=== PATIENT | female | born 1990 | race Caucasian/White ===

== ENCOUNTER 2020-06-23 11:36 | Emergency (ER) | payer SELFPAY ==
[~2020-06-23] VITALS: Ht 165 cm; Wt 61.0 kg
[~2020-06-23 11:36] MED LIST: CLC500CT PO; IBP600T1 PO; NIFE10CA2 PO; PREN1TAB14 PO
--- NOTE | 2020-06-23 11:57 | ED Lower Extremity ---
General Chief Complaint: Lower Extremity Stated Complaint: R FOOT/HEEL PAIN Source: patient Exam Limitations: no limitations History of Present Illness Date Seen by Provider: Jun 23, 2020 Time Seen by Provider: 11:50 Initial Comments 30-year-old female presents to the emergency department today with a chief complaint of right foot pain. Patient works as a "toddler caregiver" and states she thinks she may have stepped off a curb wrong and twisted her ankle. Patient co mplains of pain to the lateral aspect of her right foot and to her heel. She also has some pain at the plantar surface in the midfoot area. She states that she has been walking on her toes on that foot to try and alleviate the discomfort in the heel. Patient's been using ibuprofen and icing the area without much relief of symptoms. No other recent complaints of illness or injury. All other review of systems reviewed and negative except as stated. Onset: last week Severity: moderate Pain/Injury Location: right foot (pain over the base of the 5th MT and heel with compression and palpation) Method of Injury: twisted Allergies and Home Medications Allergies Coded Allergies: No Known Drug Allergies (Verified , 04/21/07) Home Medications Ibuprofen 600 Mg Tab, 600 MG PO Q6H Prescribed by: CHAD GERBER on 12/23/12 1059 Vits W-Ca,Fe,Fa(<1MG) 1 Each Tablet, 1 EACH PO DAILY, (Reported) Patient Home Medication List Home Medication List Reviewed: Yes Review of Systems Constitutional: see HPI EENTM: no symptoms reported Respiratory: no symptoms reported Cardiovascular: no symptoms reported Gastrointestinal: no symptoms reported Genitourinary: no symptoms reported Musculoskeletal: joint pain (heel and base of 5th MT) Skin: no symptoms reported All Other Systems Reviewed Negative Unless Noted: Yes Past Gggjvmf-Ncuack-Tidjcv Hx Immunizations Up To Date Tetanus Booster (TDap): Less than 5yrs PED Vaccines UTD: Yes Date of Influenza Vaccine: October 17, 2012 Past Medical History Reproductive Disorders: No Female Reproductive Disorders: Denies Adverse Reaction/Blood Tranf: No Physical Exam Vital Signs Vital Signs - First Documented Capillary Refill : Height, Weight, BMI Height: '" Weight: 171lbs. oz. 77.895368hv; BMI Method: General Appearance: WD/WN, no apparent distress Hips: bilateral hip non-tender, bilateral hip normal inspection, bilateral hip normal range of motion, bilateral hip no evidence of injury Legs: bilateral leg non-tender, bilateral leg normal inspection, bilateral leg normal range of motion, bilateral leg no evidence of injury Knees: bilateral knee non-tender, bilateral knee normal inspection, bilateral knee normal range of motion, bilateral knee no evidence of injury Ankles: right ankle non-tender, right ankle normal inspection, right ankle normal range of motion, right ankle no evidence of injury Feet: right foot ecchymosis, right foot limited range of motion, right foot pain, right foot soft tissue tenderness Neurologic/Tendon: normal sensation, normal motor functions, normal tendon functions, responds to pain Neurologic/Psychiatric: alert, normal mood/affect, oriented x 3 Skin: normal color, warm/dry Progress/Results/Core Measures Results/Orders My Orders Orders - ROBE GARRETT MD Foot, Right, 3 View (06/23/20 11:59) Vital Signs/I&O 06/23/20 11:42 B/P (MAP) Progress Progress Note : Time: 12:07 Progress Note 30-year-old female complains of right foot pain after a twisting injury. Evaluation today includes a physical exam. Patient has tenderness to the plantar surface of the midfoot and heel. Distal pulses are intact. Sensation is intact. X-rays are pending. 1231 X-ray is unremarkable, no evidence for fracture or dislocation. Patient will be discharged home with continued conservative management. Departure Impression Primary Impression: Sprain or strain of foot Disposition: 01 HOME, SELF-CARE Condition: Stable Departure-Patient Inst. Decision time for Depature: 12:31 Referrals: [facility]/A[facility] MARTINES,LOCAL PHYSICIAN (PCP) Primary Care Physician Patient Instructions: Foot Sprain ED Add. Discharge Instructions: Continue to use [id number]-[id number] ibuprofen as needed. You can take 4 pills with food which is 800 mg every 8 hours. Do not do this for more than 3 to 5 days. You can Rocky wrap the foot as needed for comfort. Wear a good supportive shoe. Follow-up as [facility] with [facility]. Work/School Note: Work Release Form Date Seen in the Emergency Department: Jun 23, 2020 Return to Work: Jun 25, 2020 ROBE GARRETT MD Jun 23, 2020 11:57
--- NOTE | 2020-06-23 12:30 | Diagnostic Imaging Report ---
INDICATION: Right foot pain. COMPARISON: None available. TECHNIQUE: 3 nonweightbearing views of the right foot. FINDINGS: No fracture or traumatic malalignment based on nonweightbearing imaging. There is a normal variant type I os navicularis present. No radiopaque foreign body or soft tissue gas. IMPRESSION: 1. No acute fracture. 2. Normal variant type I os navicularis.. Dictated by: Dictated on workstation # [id number]
== END 2020-06-23 12:42 | disposition home or self-care (01) ==
LOC: EDUNIT# 11:36 → ER 11:39
DX: S93.601A Unspecified sprain of right foot, initial encounter (principal); X50.1XXA Overexertion from prolonged static or awkward postures, initial encounter
CPT/HCPCS: 73630

== ENCOUNTER 2022-02-24 10:10 | Emergency (ER) | payer SELFPAY ==
[~2022-02-24] VITALS: Ht 165 cm; Wt 64.0 kg
[2022-02-24] MEDS ORDERED: NS 100 ML (IVPB) BAG IV ONE (11:15)
[2022-02-24] MEDS ORDERED: HOLD METFORMIN - RECEIVED CONTRAST 20 ML VIAL IV SCH (11:15)
[2022-02-24] MEDS ORDERED: CATHETER FLUSH 10 ML SYR IV PRN (11:15)
[2022-02-24] MEDS ORDERED: IOHEXOL 350 MG/ML 100 ML (OMNIPAQUE 350) VIAL IV ONE (11:15)
--- NOTE | 2022-02-24 11:15 | ED EENT ---
History of Present Illness General Chief Complaint: Dental Problems/Pain Stated Complaint: DENTAL PAIN Nursing Triage Note: PT CO OF L SIDED DENTAL PAIN BOTTOM L JAW. PT WAS SENT TO ED FROM [facility]. PT HAS BEEN ON ANTIBIOTIC SINCE WEDNESDAY. L LOWER JAW SWOLLEN AT THIS X. RATES PAIN12/07 Source: patient Exam Limitations: no limitations History of Present Illness Date Seen by Provider: Feb 24, 2022 Time Seen by Provider: 10:57 Initial Comments This is a 32 yo female Allergies and Home Medications Allergies Coded Allergies: No Known Drug Allergies (Verified , 04/21/07) Patient Home Medication List Calcium Carbonate (Tums) 500 Mg Tab.chew, 500 MG PO, (Reported) Entered as Reported by: ERNESTO WELLER on 12/02/12 1814 Clindamycin HCl (Clindamycin HCl) 150 Mg Capsule, 150 MG PO TID Prescribed by: NELY COOMBS on 02/24/22 1345 Clindamycin HCl (Clindamycin HCl) 300 Mg Capsule, 300 MG PO TID Prescribed by: NELY COOMBS on 02/24/22 1345 Ibuprofen (Motrin) 600 Mg Tab, 600 MG PO Q6H Prescribed by: CHAD GERBER on 12/23/12 1059 Vits W-Ca,Fe,Fa(<1MG) ( Vitamins) 1 Each Tablet, 1 EACH PO DAILY, (Reported) Entered as Reported by: LOCO CHRIS on 08/15/12 1729 Tramadol HCl (Tramadol HCl) 50 Mg Tablet, 50 MG PO Q6H PRN for PAIN Prescribed by: NELY COOMBS on 02/24/22 1345 Past Bkvhcfx-Drzeuf-Jcslpn Hx Patient Social History Tobacco Use?: Yes Tobacco type used: Cigarettes Substance use?: No Alcohol Use?: No Pt feels they are or have been: No Immunizations Up To Date Tetanus Booster (TDap): Less than 5yrs PED Vaccines UTD: Yes Seasonal Allergies Seasonal Allergies: No Past Medical History Tonsillectomy, Tubal Ligation Respiratory: No Cardiac: No Neurological: No Reproductive Disorders: No Female Reproductive Disorders: Denies Genitourinary: No Gastrointestinal: No Musculoskeletal: Yes (CARPAL TUNNEL SURGERY) Endocrine: No HEENT: No Cancer: No Psychosocial: No Integumentary: No Blood Disorders: No Adverse Reaction/Blood Tranf: No Physical Exam Vital Signs Vital Signs - First Documented 02/24/22 10:25 Temp 36.8 Pulse 88 Resp 18 B/P (MAP) 108/75 (86) Pulse Ox 100 Height, Weight, BMI Height: '" Weight: 171lbs. oz. 77.217618hs; 23.00 BMI Method: Progress/Results/Core Measures Results/Orders Lab Results Laboratory Tests Test 02/24/22 12:00 Range/Units White Blood Count 6.2 4.3-11.0 10^3/uL Red Blood Count 4.19 3.80-5.11 10^6/uL Hemoglobin 13.2 11.5-16.0 g/dL Hematocrit 39 35-52 % Mean Corpuscular Volume 92 80-99 fL Mean Corpuscular Hemoglobin 32 25-34 pg Mean Corpuscular Hemoglobin Concent 34 32-36 g/dL Red Cell Distribution Width 13.4 10.0-14.5 % Platelet Count 256 130-400 10^3/uL Mean Platelet Volume 9.4 9.0-12.2 fL Immature Granulocyte % (Auto) 0 % Neutrophils (%) (Auto) 62 42-75 % Lymphocytes (%) (Auto) 24 12-44 % Monocytes (%) (Auto) 12 0-12 % Eosinophils (%) (Auto) 1 0-10 % Basophils (%) (Auto) 1 0-10 % Neutrophils # (Auto) 3.8 1.8-7.8 10^3/uL Lymphocytes # (Auto) 1.5 1.0-4.0 10^3/uL Monocytes # (Auto) 0.8 0.0-1.0 10^3/uL Eosinophils # (Auto) 0.1 0.0-0.3 10^3/uL Basophils # (Auto) 0.0 0.0-0.1 10^3/uL Immature Granulocyte # (Auto) 0.0 0.0-0.1 10^3/uL Percent Immature Platelet Fraction 2.8 0.0-7.6 % Sodium Level 138 135-145 MMOL/L Potassium Level 5.3 H 3.6-5.0 MMOL/L Chloride Level 104 98-107 MMOL/L Carbon Dioxide Level 24 21-32 MMOL/L Anion Gap 10 5-14 MMOL/L Blood Urea Nitrogen 4 L 7-18 MG/DL Creatinine 0.70 0.60-1.30 MG/DL Estimat Glomerular Filtration Rate 117 BUN/Creatinine Ratio 6 Glucose Level 94 70-105 MG/DL Calcium Level 9.4 8.5-10.1 MG/DL Corrected Calcium 9.2 8.5-10.1 MG/DL Total Bilirubin 0.2 0.1-1.0 MG/DL Aspartate Amino Transf (AST/SGOT) 27 5-34 U/L Alanine Aminotransferase (ALT/SGPT) 23 0-55 U/L Alkaline Phosphatase 56 40-136 U/L Total Creatine Kinase 55 29-168 U/L Total Protein 8.0 6.4-8.2 GM/DL Albumin 4.2 3.2-4.5 GM/DL My Orders Orders - NELY COOMBS SENIOR STORAGE ADMINISTRATOR Urine Bedside (02/24/22 11:11) Ed Iv/Invasive Line Start (02/24/22 11:11) Ct Maxillofacial W (02/24/22 11:11) Cbc With Automated Diff (02/24/22 11:11) Comprehensive Metabolic Panel (02/24/22 11:11) Iohexol Injection (Omnipaque 350 Mg/Ml 1 (02/24/22 11:15) Received Contrast (Hold Metformin- Contr (02/24/22 11:15) Ns (Ivpb) (Sodium Chloride 0.9% Ivpb Bag (02/24/22 11:15) Sodium Chloride Flush (Catheter Flush Sy (02/24/22 11:15) Ketorolac Injection (Toradol Injection) (02/24/22 12:15) Creatine Kinase (02/24/22 13:04) Amoxicillin/Clavulanate Tablet (Augmenti (02/24/22 13:45) Medications Given in ED Current Medications Medications Dose Ordered Sig/Ana Route Start Time Stop Time Status Last Admin Dose Admin Iohexol 75 ml ONCE ONCE IV 02/24/22 11:15 02/24/22 11:34 DC 02/24/22 12:13 75 ML Ketorolac Tromethamine 30 mg ONCE ONCE IVP 02/24/22 12:15 02/24/22 12:16 DC 02/24/22 12:44 30 MG Sodium Chloride 10 ml NEEDED PRN IV 02/24/22 11:15 02/24/22 12:13 10 ML Sodium Chloride 100 ml ONCE ONCE IV 02/24/22 11:15 9/27/22 11:34 DC 02/24/22 12:13 80 ML Vital Signs/I&O 02/24/22 10:25 Temp 36.8 Pulse 88 Resp 18 B/P (MAP) 108/75 (86) Pulse Ox 100 Blood Pressure Mean: 86 Departure Impression Primary Impression: Dental caries Additional Impression: Cellulitis of jaw, left Disposition: 01 HOME, SELF-CARE Condition: Improved Departure-Patient Inst. Decision time for Depature: 13:37 Referrals: NO,LOCAL PHYSICIAN (PCP/Family) Primary Care Physician Patient Instructions: Tooth Abscess ED, Dental Pain ED Add. Discharge Instructions: Plan: 1. Follow up with your dentist for likely tooth extraction. 2. Stop taking your Amoxicillin and start Clindamycin three times a day for next 7 days. 3. May take Ibuprofen as needed for pain per package. 4. Take Tramadol 50mg by mouth every 6 hours as needed for severe pain. All discharge instructions reviewed with patient and/or family. Voiced understanding. Scripts Tramadol HCl (Tramadol HCl) 50 Mg Tablet 50 MG PO Q6H PRN for PAIN for 3 Days, #10 TAB 0 Refills Prov: NELY COOMBS SENIOR STORAGE ADMINISTRATOR 02/24/22 Clindamycin HCl (Clindamycin HCl) 300 Mg Capsule 300 MG PO TID for 7 Days, #21 CAP 0 Refills Prov: NELY COOMBS SENIOR STORAGE ADMINISTRATOR 02/24/22 Clindamycin HCl (Clindamycin HCl) 150 Mg Capsule 150 MG PO TID for 7 Days, #21 CAP 0 Refills Prov: NELY COOMBS SENIOR STORAGE ADMINISTRATOR 02/24/22 NELY COOMBS SENIOR STORAGE ADMINISTRATOR Feb 24, 2022 11:15
[2022-02-24 12:07] LABS: BASOPHILS % (AUTO) 1 % (0-10); EOSINOPHILS # (AUTO) 0.1 10^3/uL (0.0-0.3); EOSINOPHILS % (AUTO) 1 % (0-10); HEMATOCRIT 39 % (35-52); HEMOGLOBIN 13.2 g/dL (11.5-16.0); LYMPHOCYTES # (AUTO) 1.5 10^3/uL (1.0-4.0); LYMPHOCYTES % (AUTO) 24 % (12-44); MEAN CORPUSCULAR HEMOGLOBIN 32 pg (25-34); MEAN CORPUSCULAR HGB CONC 34 g/dL (32-36); MEAN CORPUSCULAR VOLUME 92 fL (80-99); MEAN PLATELET VOLUME 9.4 fL (9.0-12.2); MONOCYTES # (AUTO) 0.8 10^3/uL (0.0-1.0); MONOCYTES % (AUTO) 12 % (0-12); NEUTROPHILS # (AUTO) 3.8 10^3/uL (1.8-7.8); NEUTROPHILS % (AUTO) 62 % (42-75); PLATELET COUNT 256 10^3/uL (130-400); WHITE BLOOD COUNT 6.2 10^3/uL (4.3-11.0)
[2022-02-24] MEDS ORDERED: KETOROLAC 30 MG/ML VIAL IVP ONE (12:15)
[2022-02-24 12:26] LABS: ALBUMIN 4.2 GM/DL (3.2-4.5); BILIRUBIN,TOTAL 0.2 MG/DL (0.1-1.0); CALCIUM 9.4 MG/DL (8.5-10.1); CREATININE SERUM 0.7 MG/DL (0.60-1.30)
[2022-02-24 12:28] LABS: POTASSIUM 5.3 MMOL/L (3.6-5.0)
--- NOTE | 2022-02-24 12:50 | Diagnostic Imaging Report ---
PROCEDURE: CT maxillofacial with contrast. TECHNIQUE: After intravenous administration of contrast, axial images were obtained through the face and reformatted into coronal and sagittal planes. Auto Exposure Controls were utilized during the CT exam to meet ALARA standards for radiation dose reduction. INDICATION: Left jaw pain. FINDINGS: There is asymmetric swelling of the left jaw musculature and adjacent subcutaneous fat; however, no organized fluid collection is identified. There does appear to be caries involving the right posterior maxillary teeth with erosive change involving the posterior left maxillary and mandibular teeth. There are periapical lucencies involving the incisors of the maxilla. No definite fracture is identified. Images through the skull base are unremarkable. There is no paranasal sinus air-fluid level and the mastoid air cells are clear. There is debris within the right external auditory canal which could be related to cerumen. There are mildly prominent deep cervical lymph nodes in the left submandibular region. IMPRESSION: Cellulitis and myositis in the left jaw external to the mandible without evidence of mandibular destruction. No organized fluid collection is seen to indicate an abscess. There is poor dentition and dental correlation would be of use. Dictated by: Dictated on workstation # [id number]
[2022-02-24] MEDS ORDERED: CLIN150C20 PO (13:45)
[2022-02-24] MEDS ORDERED: TRM50T PO (13:45)
[2022-02-24] MEDS ORDERED: AUGMENTIN 875 MG TAB (AMOXICILLIN/CLAVULANATE) PO ONE (13:45)
[2022-02-24] MEDS ORDERED: CLIN-144 PO (13:45)
[2022-02-24] MEDS ORDERED: CLINDAMYCIN 150 MG (CLEOCIN) CAP PO ONE (14:00)
[2022-02-24 14:06] VITALS: BP 108/75
== END 2022-02-24 14:06 | disposition home or self-care (01) ==
LOC: EDUNIT# 10:10 → ER 10:11
DX: K02.9 Dental caries, unspecified (principal); L03.211 Cellulitis of face; F17.210 Nicotine dependence, cigarettes, uncomplicated; Z28.310 Unvaccinated for COVID-19
CPT/HCPCS: 36415; 70487; 80053; 82550; 84703; 85025

== ENCOUNTER 2023-03-19 01:41 | Emergency (ER) | payer SELFPAY ==
[~2023-03-19] VITALS: Ht 165 cm; Wt 63.0 kg
[~2023-03-19 01:41] MED LIST changes: +CLIN-144 PO; +CLIN150C20 PO; +TRM50T PO
--- NOTE | 2023-03-19 02:35 | ED EENT ---
History of Present Illness General Chief Complaint: Dental Problems/Pain Stated Complaint: INFECTION OF MOUTH Nursing Triage Note: PATIENT TO ED WITH COMPLAINT OF MOUTH "INFECTION" AND PAIN STARTED WEDNESDAY MORNING. PATIENTS GUMS APPEAR RED. PATIENT STATES TOOK IBUPROFEN, HAS ICED HER MOUTH, APPLIED ORAJEL WITH NO RELIEF. Source: patient Exam Limitations: no limitations (CESAR JIMENEZ) History of Present Illness Date Seen by Provider: Mar 19, 2023 Time Seen by Provider: 02:30 Initial Comments Patient presents today with a history of mouth pain since WednesdayMarch 17. She says that she has had "infections" and pain like this before. The pain is located to her right upper and center gums and radiates to her right maxilla area towards the bridge of her nose. She has never had any dental procedures done and states the last time this happened to her she was prescribed an antiobiotic and it went away. She has tried ibuprofen, tylenol, ice and oragel for the pain but it has not gotten better. She rates the pain as a 7/10 currently. She denies any fever, chills, nausea or vomiting since the onset of symptoms. Timing/Duration: gradual Severity: mild Location: mouth, facial, dental Prearrival Treatment: no prearrival treatment Associated Symptoms: facial pain/swelling, tooth pain (CESAR JIMENEZ) Allergies and Home Medications Allergies Coded Allergies: hydrocodone (Verified Allergy, Mild, Vomiting, 03/19/23) Patient Home Medication List Home Medication List Reviewed: Yes (CESAR JIMENEZ) Calcium Carbonate (Tums) 500 Mg Tab.chew, 500 MG PO, (Reported) Entered as Reported by: ERNESTO WELLER on 12/02/121813 Clindamycin HCl (Clindamycin HCl) 150 Mg Capsule, 150 MG PO TID Prescribed by: NELY COOMBS on 02/24/22 1345 Clindamycin HCl (Clindamycin HCl) 300 Mg Capsule, 300 MG PO TID Prescribed by: NELY COOMBS on 02/24/22 1345 Ibuprofen (Motrin) 600 Mg Tab, 600 MG PO Q6H Prescribed by: CHAD GERBER on 12/23/12 1059 Vits W-Ca,Fe,Fa(<1MG) ( Vitamins) 1 Each Tablet, 1 EACH PO DAILY, (Reported) Entered as Reported by: LOCO CHRIS on 08/15/12 1729 Tramadol HCl (Tramadol HCl) 50 Mg Tablet, 50 MG PO Q6H PRN for PAIN Prescribed by: NELY COOMBS on 02/24/22 1345 Review of Systems Review of Systems Constitutional: No chills, No diaphoresis, No dizziness, No fever Eyes: Denies Blurred Vision, Denies Drainage Ears: Denies Dizziness, Denies Pain Nose: denies congestion, denies epistaxis Mouth: loose teeth, pain, swelling, previous injury Throat: no symptoms reported Respiratory: no symptoms reported; No cough, No short of breath Cardiovascular: No chest pain, No palpitations Gastrointestinal: No abdominal pain, No constipation, No diarrhea, No dysphagi a; loss of appetite (CESAR JIMENEZ) Past Csodmil-Hazjqg-Suugux Hx Patient Social History Tobacco Use?: Yes Tobacco type used: Cigarettes Smoking Status: Current Everyday Smoker Use of E-Cig and/or Vaping dev: No Substance use?: Yes Substance type: Marijuana Alcohol Use?: Yes Alcohol Frequency: Once in a while (CESAR JIMENEZ) Immunizations Up To Date Tetanus Booster (TDap): Less than 5yrs PED Vaccines UTD: Yes (CESAR JIMENEZ) Seasonal Allergies Seasonal Allergies: No (CESAR JIMENEZ) Past Medical History Surgeries: No Tonsillectomy, Tubal Ligation Respiratory: No Cardiac: No Neurological: No Reproductive Disorders: No Female Reproductive Disorders: Denies Genitourinary: No Gastrointestinal: No Musculoskeletal: Yes (CARPAL TUNNEL SURGERY) Endocrine: No HEENT: No Cancer: No Psychosocial: No Integumentary: No Blood Disorders: No Adverse Reaction/Blood Tranf: No (CESAR JIMENEZ) Physical Exam Vital Signs Vital Signs - First Documented 03/19/23 02:04 Temp 36.8 Pulse 88 Resp 20 Pulse Ox 100 O2 Delivery Room Air (NEGRITO HENDRICKS MD) Height, Weight, BMI Height: '" Weight: 171lbs. oz. 77.775702wh; 23.00 BMI Method: General Appearance: WD/WN, no apparent distress Eyes: bilateral eye normal inspection, bilateral eye PERRL, bilateral eye EOMI Ears: bilateral ear auricle normal, bilateral ear canal normal, bilateral ear TM normal Nose: normal inspection; No active bleeding, No discharge Mouth/Throat: dental tenderness; No tongue swollen, No tonsillar swelling, No uvula swelling; other (tenderness to maxilla, poor dentition, two pustules to right and center upper gums, erythema. ) Neck: non-tender, supple Cardiovascular: regular rate, rhythm, no gallop, no murmur Respiratory: lungs clear, normal breath sounds, no respiratory distress (CESAR JIMENEZ) Progress/Results/Core Measures Results/Orders My Orders Orders - NEGRITO HENDRICKS MD Clindamycin Capsule (Clindamycin Capsule (03/19/23 03:15) (NEGRITO HENDRICKS MD) Vital Signs/I&O 03/19/23 02:04 Temp 36.8 Pulse 88 Resp 20 B/P (MAP) Pulse Ox 100 O2 Delivery Room Air (NEGRITO HENDRICKS MD) Progress Progress Note : Time: 02:37 Progress Note Patient is seen for dental pain since March 17. She states that she has had infections like this before and was prescribed antibiotics that helped it go away. Upon inspection she has tenderness to the right maxilla and is firm to the touch when compared to the left maxilla. Upon inspection of the mouth she has poor dentition, with erythematous gums. She has two broken open pustules on the right upper gum as well as the center of her upper gums. She states that she popped them over the past two days because they were filled with fluid. She has no tenderness to left sided gums or maxilla at this time. She denies any fevers or chills. (CESAR JIMENEZ) Departure Impression Primary Impression: Dental infection Additional Impression: Pain, dental Disposition: HOME, SELF-CARE Condition: Stable Departure-Patient Inst. Decision time for Depature: 03:16 (NEGRITO HENDRICKS MD) Referrals: NO,LOCAL PHYSICIAN (PCP/Family) Primary Care Physician Patient Instructions: Dental Pain, Tooth Decay, Adult (DC) Add. Discharge Instructions: For primary pain control you may use ibuprofen up to 600 mg every 6 hours as needed and or Tylenol (acetaminophen) up to 1000 mg every 6 hours as needed. Add tramadol (Ultram) as prescribed for pain not controlled by pmbx-eqd-viboplu medication. Use Ultram with caution as it may cause drowsiness. Do not drive, operate machinery, or make important decisions while on Ultram. Ultram may also cause constipation, see may wish to use a stool softener such as Colace while taking it. Complete your antibiotics as prescribed. Follow-up with a dentist and/or oral surgeon as soon as possible to discuss extractions and other more permanent therapies for your dental disease. Return to care if you have worsening symptoms despite following these instructi ons, especially if you develop fevers over 100 degrees or escalating pain and swelling. All discharge instructions reviewed with patient and/or family. Voiced understanding. Scripts Tramadol HCl (Tramadol HCl) 50 Mg Tablet 50 MG PO Q6H PRN for PAIN BREAKTROUGH, #20 TAB Prov: NEGRITO HENDRICKS MD 03/19/23 Clindamycin HCl (Clindamycin HCl) 300 Mg Capsule 300 MG PO QID, #40 CAP Prov: NEGRITO HENDRICKS MD 03/19/23 CESAR JIMENEZ Mar 19, 2023 02:35 NEGRITO HENDRICKS MD Mar 19, 2023 03:19
[2023-03-19] MEDS ORDERED: CLINDAMYCIN 150 MG CAPSULE PO ONE (03:15)
[2023-03-19] MEDS ORDERED: TRM50T PO (03:18)
[2023-03-19] MEDS ORDERED: CLIN-144 PO (03:18)
== END 2023-03-19 03:26 | disposition home or self-care (01) ==
LOC: EDUNIT# 01:41 → ER 01:44
DX: K04.7 Periapical abscess without sinus (principal); F17.210 Nicotine dependence, cigarettes, uncomplicated
CPT/HCPCS: 99283